=== PATIENT | male | born 1940 | race Caucasian/White ===

== ENCOUNTER 2017-02-11 08:59 | Outpatient (CLI) | payer MEDICARE, OTHER ==
--- NOTE | 2017-02-11 11:22 | ULT ---
ULTRASOUND OF THE ABDOMINAL AORTA: History: Screening for cardiovascular disorders. Comparison: None. FINDINGS: Real-time grayscale and color doppler and spectral analysis of the aorta is performed using a curvil inear transducer. The proximal aorta measures 1.8 x 1.9 x 1.8 cm. The mid aorta measures 1.7 x 1.7 x 1.5 cm. The dista l aorta measures 1.6 x 1.7 x 1.6 cm. No aneurysm. Normal spectral analysis. IMPRESSION: No evidence for aortic aneurysm. POS: [facility]
== END 2017-02-11 09:00 | disposition home or self-care (01) ==
LOC: NAV ULT 08:59
PROVIDERS: ATTEND Internal Medicine
DX: Z13.6 Encounter for screening for cardiovascular disorders (principal)
CPT/HCPCS: 76775

== ENCOUNTER 2017-05-07 10:31 | Outpatient (CLI) | payer MEDICARE, OTHER ==
[2017-05-07 12:55] LABS: #Eosinphils 0.2 thou/uL (0.0-0.7); #Monocytes 0.5 thou/uL (0.11-0.59); #Neutrophils 3.1 thou/uL (1.40-6.50); %Basophils 0.5 % (0.0-1.0); %Eosinophils 4.1 % (0.0-10.0); %Lymphocytes 20.2 % (21.0-51.0); %Neutrophils 64.3 % (42.0-75.0); Hemoglobin 13.1 g/dL (14.0-18.0); Mean Corpuscular HGB CONC 32.2 g/dL (32.0-36.0); Mean Corpuscular Hemoglobin 26.8 pg (27.0-31.0); Mean Corpuscular Volume 83.4 fl (80.0-94.0); Mean Platelet Volume 7.1 fL (7.4-10.4); Platelet Count 190 thou/uL (130-400); RBC Distribution Width 12.4 % (11.5-14.5); Red Blood Cell (RBC) Count 4.87 mill/uL (4.70-6.10); White Blood Cell (WBC) Count 4.8 thou/uL (4.8-10.8)
[2017-05-07 13:20] LABS: Hemoglobin A1c 5.3 % (4.0-6.0)
[2017-05-07 13:38] LABS: Cardiac Risk 2.8 (Less than 4.5)
== END 2017-05-07 10:32 | disposition home or self-care (01) ==
LOC: NAVSJIPCSP 10:31
PROVIDERS: ATTEND Internal Medicine
DX: E78.5 Hyperlipidemia, unspecified (principal); E11.9 Type 2 diabetes mellitus without complications; D64.9 Anemia, unspecified; Z79.899 Other long term (current) drug therapy
CPT/HCPCS: 36415; 80061; 83036; 85025

== ENCOUNTER 2017-08-11 10:58 | Outpatient (CLI) | payer MEDICARE, OTHER ==
[2017-08-11 13:25] LABS: #Basophils 0.1 thou/uL (0.0-0.2); #Eosinphils 0.3 thou/uL (0.0-0.7); #Lymphocytes 1.1 thou/uL (1.20-3.40); #Monocytes 0.4 thou/uL (0.11-0.59); #Neutrophils 2.7 thou/uL (1.40-6.50); %Basophils 1.4 % (0.0-1.0); %Eosinophils 5.8 % (0.0-10.0); %Lymphocytes 24.7 % (21.0-51.0); %Monocytes 8.6 % (0.0-10.0); %Neutrophils 59.5 % (42.0-75.0); Hemoglobin 13.3 g/dL (14.0-18.0); Mean Corpuscular HGB CONC 32.8 g/dL (32.0-36.0); Mean Corpuscular Hemoglobin 27.5 pg (27.0-31.0); Mean Corpuscular Volume 83.8 fl (80.0-94.0); Mean Platelet Volume 7.6 fL (7.4-10.4); Platelet Count 208 thou/uL (130-400); RBC Distribution Width 11.6 % (11.5-14.5); Red Blood Cell (RBC) Count 4.86 mill/uL (4.70-6.10); White Blood Cell (WBC) Count 4.5 thou/uL (4.8-10.8)
[2017-08-11 13:57] LABS: Cardiac Risk 2.5 (Less than 4.5)
[2017-08-11 14:07] LABS: Hemoglobin A1c 5.3 % (4.0-6.0)
== END 2017-08-11 10:59 | disposition home or self-care (01) ==
LOC: NAVSJIPCSP 10:58
PROVIDERS: ATTEND Internal Medicine
DX: Z12.11 Encounter for screening for malignant neoplasm of colon (principal); E78.5 Hyperlipidemia, unspecified; E11.9 Type 2 diabetes mellitus without complications; D64.9 Anemia, unspecified
CPT/HCPCS: 36415; 80061; 82728; 83036; 83540; 85025

== ENCOUNTER 2018-11-01 14:32 | Outpatient (CLI) | payer MEDICARE, OTHER ==
--- NOTE | 2018-11-01 15:12 | RAD ---
RIGHT RIBS AND PA CHEST FOUR VIEWS: History: Right rib pain for three days after picking up a back of dog food. FINDINGS: The bones do appear demineralized. 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 I do not see any definite signs of an acute fracture. No pleural effusion is noted. Heart size is within kulwant l limits. There are atherosclerotic changes of the aorta. The lungs are clear of infiltrates. IMPRESSION: No acute injury. POS: [facility]
== END 2018-11-01 14:33 | disposition home or self-care (01) ==
LOC: NAV RAD 14:32
PROVIDERS: ATTEND Nurse Practitioner Adult Health
DX: R07.81 Pleurodynia (principal)

== ENCOUNTER 2018-11-03 09:16 | Outpatient (CLI) | payer MEDICARE, OTHER ==
--- NOTE | 2018-11-03 11:54 | ULT ---
EXAM: ABDOMINAL ULTRASOUND COMPLETE: History: 78-year-old male with history of right upper quadrant pain and fever for five days. FINDINGS: There is a very abnormal appearing gallbladder with very severe gallbladder wall thickening and peric holecystic fluid. Gallbladder wall measures up to 2 cm. There are extensive mobile gallstones and gal lbladder sludge. Common bile duct is 0.8 cm. The gallbladder is distended and minimally dilated. Ther e is a positive Pinto's sign. No focal liver masses. Visualized pancreas, IVC, aorta, and spleen are unremarkable. No renal hydronephrosis. No evidence for abscess. IMPRESSION: Very markedly abnormal gallbladder with very severe gallbladder wall thickening and edema with erwin us gallstones and sludge with a positive Pinto's sign, evidence for acute cholecystitis. 0.8 cm comm on bile duct. Dr. Doyle/Vianney were informed and instructed the patient to go to the emergency room immediately, a lthough the patient left against medical advice to check on his spouse, but will supposedly be regist ering at [facility] Emergency Department sometime today. Dr. Doyle/Vianney were notified that th e patient did not go to the Emergency Department but rather went home to check on his spouse. POS: [facility]
== END 2018-11-03 09:17 | disposition home or self-care (01) ==
LOC: NAV ULT 09:16
PROVIDERS: ATTEND Nurse Practitioner Adult Health
DX: R10.9 Unspecified abdominal pain (principal); K80.00 Calculus of gallbladder with acute cholecystitis without obstruction; R60.0 Localized edema; K82.8 Other specified diseases of gallbladder
CPT/HCPCS: 76700